=== PATIENT | female | born 1975 | race Two or more races ===

== ENCOUNTER 2021-06-28 19:00 | Inpatient (IN) | payer MEDICAID ==
[~2021-06-28] VITALS: Ht 152.4 cm; Wt 74.9 kg
[~2021-06-28 19:00] MED LIST: ALBU108A5 IN; BENZ0.5T19 PO; BUSP5TAB51 PO; CETI1TAB36 PO; CHOL20007 PO; CICL160A2 IN; CYA100I IM; ESCI20TA PO; HYDR25TA4 PO; LAMO25TA2 PO; MONT4CHW9 PO; NORE-20 PO; NORT10CA PO; PANT40TA2 PO; TRAZ100T3 PO; VERA1TAB24 PO
[2021-06-28] MEDS ORDERED: ALBUTEROL SULF 2.5 MG/0.5ML(0.5%) NEB SOLN NEB ONE (19:45)
[2021-06-28] MEDS ORDERED: DexAMETHasone SOD PHOS 10MG/1ML VIAL INJ IV ONE (19:45)
[2021-06-28] MEDS ORDERED: AZITHROMYCIN 500MG/ 250ML 250 ML IV ONE (19:45)
[2021-06-28] MEDS ORDERED: IPRATROPIUM BROM 0.5 MG/2.5ML INH SOL NEB ONE (19:45)
[2021-06-28 21:20] LABS: Urine Bacteria FEW /hpf (None Seen); Urine Blood TRACE /uL (Negative); Urine Specific Gravity 1.013 (1.001-1.035); Urine WBC 140 /hpf (0 - 5)
[2021-06-28 22:27] LABS: Basophils # (auto) 0 10 ^3/uL (0-0.2); Basophils % (auto) 0.9 % (0.0-2.0); Eosinophils # (auto) 0 10 ^3/uL (0-0.8); Eosinophils % (auto) 0.7 % (0.0-7.0); Hematocrit 35.4 % (36.0-46.0); Hemoglobin 11.9 g/dL (12.2-16.2); Lymphocytes # (auto) 0.8 10 ^3/uL (0.4-5.4); Lymphocytes % (auto) 16.9 % (10.0-50.0); Mean Corpuscular Hemoglobin 30.5 pg (28.0-32.0); Mean Corpuscular Hgb Conc. 33.5 g/dL (32.0-36.0); Monocytes # (auto) 0.4 10 ^3/uL (0-1.3); Monocytes % (auto) 8.5 % (0.0-12.0); Neutrophils # (auto) 3.4 10 ^3/uL (1.6-8.6); Red Blood Cells 3.89 10^6/uL (4.0-5.20); Red Cell Distribution Width 13.9 % (11.8-14.3); White Blood Cell 4.6 10^3/uL (4.4-10.8)
[2021-06-28 22:41] LABS: Magnesium 2.5 mg/dL (1.6-2.6); Potassium 3.4 mmol/L (3.5-5.1)
[2021-06-28 22:48] LABS: BUN/Creatinine Ratio 5.1; Bilirubin, Total 0.6 mg/dL (0.2-1.0); Total Protein 7.3 g/dL (6.4-8.2)
[2021-06-28 23:03] LABS: INR 1.08 (0.9-1.15); Partial Thromboplastin Time 27.6 sec (23.6-33.0)
[2021-06-29] MEDS ORDERED: ACETAMINOPHEN 325 MG TAB PO PRN (00:45)
[2021-06-29] MEDS ORDERED: DOCUSATE SOD 100 MG CAP PO PRN (00:45)
[2021-06-29] MEDS ORDERED: ONDANSETRON HCL 4 MG/2 ML VIAL IV PRN (00:45)
[2021-06-29] MEDS ORDERED: hydrALAZINE HCL 20 MG/ML VL IV PRN (00:45)
[2021-06-29] MEDS ORDERED: MORPHINE SULFATE 4 MG/ML SYR/VIAL IV PRN (00:45)
[2021-06-29] MEDS: IPRATROPIUM BROM 0.5 MG/2.5ML INH SOL NEB PRN ×4 (01:27→20:15)
[2021-06-29] MEDS: ALBUTEROL SULF 2.5 MG/0.5ML(0.5%) NEB SOLN NEB PRN ×4 (01:27→20:15)
[2021-06-29] MEDS ORDERED: POTASSIUM CHL 20 Meq TABLET PO ONE (02:00)
[2021-06-29] MEDS ORDERED: NITROGLYCERIN 0.4 MG SL TAB SL PRN (02:00)
[2021-06-29] MEDS ORDERED: MORPHINE SULFATE INJECTION 2 MG/ML SYRG IV PRN (02:00)
[2021-06-29 04:55] LABS: Basophils # (auto) 0 10 ^3/uL (0-0.2); Basophils % (auto) 0.3 % (0.0-2.0); Eosinophils # (auto) 0 10 ^3/uL (0-0.8); Hematocrit 35.5 % (36.0-46.0); Lymphocytes # (auto) 0.4 10 ^3/uL (0.4-5.4); Lymphocytes % (auto) 10.8 % (10.0-50.0); Mean Corpuscular Hemoglobin 30.9 pg (28.0-32.0); Mean Corpuscular Hgb Conc. 33.9 g/dL (32.0-36.0); Mean Corpuscular Volume 91.3 fL (80.0-100.0); Monocytes # (auto) 0.1 10 ^3/uL (0-1.3); Monocytes % (auto) 2.6 % (0.0-12.0); Neutrophils # (auto) 3.2 10 ^3/uL (1.6-8.6); Neutrophils % (auto) 86.3 % (37.0-80.0); Red Blood Cells 3.89 10^6/uL (4.0-5.20); Red Cell Distribution Width 14.1 % (11.8-14.3); White Blood Cell 3.7 10^3/uL (4.4-10.8)
[2021-06-29 05:33] LABS: Calcium 8.3 mg/dL (8.5-10.1)
[2021-06-29 05:37] LABS: BUN/Creatinine Ratio 5.5; Bilirubin, Total 0.6 mg/dL (0.2-1.0); Total Protein 7.7 g/dL (6.4-8.2)
[2021-06-29] MEDS: SODIUM CHLOR 0.9% PF (SALINE LOCK) 10ML VIAL/SYR IV SCH ×3 (06:48→21:06)
[2021-06-29] MEDS: methylPREDNISolone SOD SUCC 40 MG/ML VL IV SCH ×3 (06:49→21:03)
[2021-06-29] MEDS: cefTRIAXone 1GM/50ML D5W 50 ML IV SCH (09:43)
[2021-06-29] MEDS: ZINC SULFATE 220mg CAP or TAB PO SCH (09:44)
[2021-06-29] MEDS: MULTIPLE VITAMIN TAB PO SCH (09:44)
[2021-06-29] MEDS: ASCORBIC ACID 500 MG TAB PO SCH ×2 (09:48→21:02)
[2021-06-29] MEDS: HYDROcodone-ACET 5/325MG TAB PO PRN ×3 (09:49→21:06)
[2021-06-29] MEDS ORDERED: FAMOTIDINE (10MG/ML) 2ML VL IV SCH (10:00)
[2021-06-29 12:00] VITALS: BP 128/82
[2021-06-29] MEDS ORDERED: OLAN20TA PO (12:02)
[2021-06-29] MEDS ORDERED: ALBU0.084 NEB (12:02)
[2021-06-29] MEDS ORDERED: BUDE1AER4 IN (12:02)
[2021-06-29 17:00] VITALS: BP 110/74
[2021-06-29] MEDS: SUCRALFATE 1 GM/10 ML ORAL SUSP PO SCH ×2 (17:30→21:02)
[2021-06-29] MEDS: PANTOPRAZOLE 40 MG TAB PO SCH (21:02)
[2021-06-29 22:00] VITALS: BP 114/62
[2021-06-30] MEDS: ALBUTEROL SULF 2.5 MG/0.5ML(0.5%) NEB SOLN NEB PRN (01:03)
[2021-06-30] MEDS: IPRATROPIUM BROM 0.5 MG/2.5ML INH SOL NEB PRN (01:03)
[2021-06-30 05:36] LABS: Basophils # (auto) 0 10 ^3/uL (0-0.2); Basophils % (auto) 0.1 % (0.0-2.0); Eosinophils # (auto) 0 10 ^3/uL (0-0.8); Hematocrit 34.1 % (36.0-46.0); Hemoglobin 11.8 g/dL (12.2-16.2); Lymphocytes # (auto) 0.8 10 ^3/uL (0.4-5.4); Lymphocytes % (auto) 10.1 % (10.0-50.0); Mean Corpuscular Hemoglobin 31.3 pg (28.0-32.0); Mean Corpuscular Hgb Conc. 34.5 g/dL (32.0-36.0); Mean Corpuscular Volume 90.7 fL (80.0-100.0); Monocytes # (auto) 0.5 10 ^3/uL (0-1.3); Monocytes % (auto) 6.6 % (0.0-12.0); Neutrophils # (auto) 6.9 10 ^3/uL (1.6-8.6); Neutrophils % (auto) 83.2 % (37.0-80.0); Nucleated Red Blood Cells % 0.1 %; Red Blood Cells 3.76 10^6/uL (4.0-5.20); Red Cell Distribution Width 14.1 % (11.8-14.3); White Blood Cell 8.3 10^3/uL (4.4-10.8)
[2021-06-30 05:54] LABS: Albumin 2.8 g/dL (3.4-5.0); Calcium 8.6 mg/dL (8.5-10.1); Potassium 4.8 mmol/L (3.5-5.1)
[2021-06-30 05:59] LABS: BUN/Creatinine Ratio 13.3; Bilirubin, Total 0.4 mg/dL (0.2-1.0); Total Protein 6.7 g/dL (6.4-8.2)
[2021-06-30] MEDS: ALBUTEROL SULF 2.5 MG/0.5ML(0.5%) NEB SOLN NEB SCH ×5 (06:11→22:44)
[2021-06-30] MEDS: IPRATROPIUM BROM 0.5 MG/2.5ML INH SOL NEB SCH ×5 (06:12→22:44)
[2021-06-30 06:14] VITALS: BP 118/83
[2021-06-30] MEDS: methylPREDNISolone SOD SUCC 40 MG/ML VL IV SCH ×3 (06:17→21:43)
[2021-06-30] MEDS: SODIUM CHLOR 0.9% PF (SALINE LOCK) 10ML VIAL/SYR IV SCH ×3 (06:17→21:43)
[2021-06-30] MEDS: SUCRALFATE 1 GM/10 ML ORAL SUSP PO SCH ×4 (06:17→21:45)
[2021-06-30 08:00] VITALS: BP 118/83
[2021-06-30 08:54] VITALS: BP 120/67
[2021-06-30] MEDS: ZINC SULFATE 220mg CAP or TAB PO SCH (09:09)
[2021-06-30] MEDS: cefTRIAXone 1GM/50ML D5W 50 ML IV SCH ×2 (09:09→11:44)
[2021-06-30] MEDS: MULTIPLE VITAMIN TAB PO SCH (09:09)
[2021-06-30] MEDS: ASCORBIC ACID 500 MG TAB PO SCH ×2 (09:10→21:44)
[2021-06-30] MEDS: PANTOPRAZOLE 40 MG TAB PO SCH ×2 (09:10→21:44)
[2021-06-30] MEDS: HYDROcodone-ACET 5/325MG TAB PO PRN ×3 (09:18→20:15)
[2021-06-30 12:38] LABS: Hepatitis B Surface Antibody Positive (Negative)
[2021-06-30] MEDS ORDERED: BUSP30TA PO (12:40)
[2021-06-30 13:00] VITALS: BP 121/73
[2021-06-30 13:12] LABS: Hepatitis A Total Antibody Positive (Negative)
[2021-06-30 13:41] LABS: Hepatitis C Antibody Negative (Negative)
[2021-06-30] MEDS: busPIRone HCL 10 MG TAB PO SCH ×2 (14:18→21:44)
[2021-06-30 17:00] VITALS: BP 106/58
[2021-06-30] MEDS ORDERED: diazePAM 5 MG TAB PO PRN (18:30)
[2021-06-30 21:00] VITALS: BP 111/82
[2021-06-30] MEDS ORDERED: traZODone HCL 50 MG TAB PO SCH (22:00)
[2021-06-30] MEDS ORDERED: OLANZapine 5 MG TAB PO SCH (22:00)
[2021-07-01] MEDS: ALBUTEROL SULF 2.5 MG/0.5ML(0.5%) NEB SOLN NEB SCH ×4 (01:52→14:21)
[2021-07-01] MEDS: IPRATROPIUM BROM 0.5 MG/2.5ML INH SOL NEB SCH ×4 (01:52→14:21)
[2021-07-01 05:00] VITALS: BP_SYST 118; BP_SYST 123; BP_DIAS 58; BP_DIAS 70
[2021-07-01] MEDS: methylPREDNISolone SOD SUCC 40 MG/ML VL IV SCH ×2 (06:05→13:44)
[2021-07-01] MEDS: SODIUM CHLOR 0.9% PF (SALINE LOCK) 10ML VIAL/SYR IV SCH ×2 (06:05→13:44)
[2021-07-01] MEDS: SUCRALFATE 1 GM/10 ML ORAL SUSP PO SCH ×2 (06:05→11:30)
[2021-07-01 08:00] VITALS: BP 118/69
[2021-07-01] MEDS: busPIRone HCL 10 MG TAB PO SCH (08:44)
[2021-07-01] MEDS: ZINC SULFATE 220mg CAP or TAB PO SCH (08:44)
[2021-07-01] MEDS: MULTIPLE VITAMIN TAB PO SCH (08:45)
[2021-07-01] MEDS: PANTOPRAZOLE 40 MG TAB PO SCH (08:45)
[2021-07-01] MEDS: ASCORBIC ACID 500 MG TAB PO SCH (08:46)
[2021-07-01 08:47] VITALS: BP 118/69
[2021-07-01] MEDS: HYDROcodone-ACET 5/325MG TAB PO PRN (09:10)
[2021-07-01] MEDS ORDERED: HCTZ 25 MG TAB PO SCH (10:00)
[2021-07-01] MEDS ORDERED: VERAPAMIL HCL 120 mg ER tab PO SCH (10:00)
[2021-07-01] MEDS ORDERED: FLUoxetine HCL 20 MG CAP PO SCH (10:00)
[2021-07-01] MEDS ORDERED: ALBUAER3 IN (11:26)
[2021-07-01] MEDS ORDERED: PANT40T PO (11:29)
[2021-07-01] MEDS ORDERED: SUCR1TAB22 OR (11:29)
[2021-07-01] MEDS ORDERED: ALBU0.084 NEB (11:29)
[2021-07-01] MEDS ORDERED: LEVO500T31 PO (11:29)
[2021-07-01 13:06] VITALS: BP 111/61
== END 2021-07-01 14:15 | disposition home or self-care (01) | DRG 133 ==
LOC: EDBD 19:00 → ER 19:02 → OVERFLOW 06-29 01:56 → WEST WING 06-29 11:35
PROVIDERS: ADMIT Nurse Practitioner Family; ATTEND Family Medicine
DX: J96.00 Acute respiratory failure, unspecified whether with hypoxia or hypercapnia (principal); J45.42 Moderate persistent asthma with status asthmaticus; E88.09 Other disorders of plasma-protein metabolism, not elsewhere classified; K76.0 Fatty (change of) liver, not elsewhere classified; F25.0 Schizoaffective disorder, bipolar type; K21.9 Gastro-esophageal reflux disease without esophagitis; E87.6 Hypokalemia; N39.0 Urinary tract infection, site not specified; F06.4 Anxiety disorder due to known physiological condition; I10 Essential (primary) hypertension; F43.22 Adjustment disorder with anxiety; K80.20 Calculus of gallbladder without cholecystitis without obstruction; F32.A Depression, unspecified; G43.909 Migraine, unspecified, not intractable, without status migrainosus; Z80.0 Family history of malignant neoplasm of digestive organs; Z80.3 Family history of malignant neoplasm of breast; Z81.8 Family history of other mental and behavioral disorders; Z82.49 Family history of ischemic heart disease and other diseases of the circulatory system; Z83.3 Family history of diabetes mellitus; Z90.49 Acquired absence of other specified parts of digestive tract; Z56.0 Unemployment, unspecified; Z91.51 Personal history of suicidal behavior; Z88.7 Allergy status to serum and vaccine
CPT/HCPCS: 36415; 71045; 76705; 80053; 81001; 82728; 83036; 83735; 83880; 84484; 84702; 85025; 85610; 85730; 86038; 86704; 86706; 86708; 86803; 87040; 87081; 87086; 87088; 87186; 87340; 87426; 94640; 96365; 96375; G0378; J0696; J1100; J3490

== ENCOUNTER → 2021-12-04 | Emergency (ER) | payer MEDICAID ==
[~2021-12-04] VITALS: Ht 152.4 cm; Wt 77.1 kg
[~2021-12-04] MED LIST changes: +ACETAMINOPHEN 325 MG TAB PO ONE; +ACETAMINOPHEN 500 MG TAB PO ONE; +ALBU0.084 NEB; +ALBUAER3 IN; -BENZ0.5T19 PO; +BUDE1AER4 IN; +BUSP30TA PO; -BUSP5TAB51 PO; -CETI1TAB36 PO; -CHOL20007 PO; -CICL160A2 IN; -CYA100I IM; +IOHEXOL 300 MG/ML 100ML BOTTLE IJ ONE; -LAMO25TA2 PO; +LEVO500T31 PO; -MONT4CHW9 PO; -NORE-20 PO; -NORT10CA PO; +OLAN20TA PO; +PANT40T PO; +POTASSIUM CHL 20 Meq TABLET PO ONE; +SODIUM CHLORIDE 0.9% 1,000 ML IV ONE; +SUCR1TAB22 OR; +cefTRIAXone 1GM/50ML D5W 50 ML IV ONE
[2021-12-04 21:21] LABS: Basophils # (auto) 0.2 10 ^3/uL (0-0.2); Basophils % (auto) 1.6 % (0.0-2.0); Eosinophils # (auto) 0 10 ^3/uL (0-0.8); Eosinophils % (auto) 0.2 % (0.0-7.0); Hematocrit 34.6 % (36.0-46.0); Hemoglobin 11.9 g/dL (12.2-16.2); Lymphocytes % (auto) 9.1 % (10.0-50.0); Mean Corpuscular Hemoglobin 28.8 pg (28.0-32.0); Mean Corpuscular Hgb Conc. 34.3 g/dL (32.0-36.0); Mean Corpuscular Volume 84.2 fL (80.0-100.0); Monocytes # (auto) 0.5 10 ^3/uL (0-1.3); Monocytes % (auto) 4.6 % (0.0-12.0); Neutrophils # (auto) 9.4 10 ^3/uL (1.6-8.6); Neutrophils % (auto) 84.5 % (37.0-80.0); Nucleated Red Blood Cells % 0.1 %; Red Blood Cells 4.12 10^6/uL (4.0-5.20); Red Cell Distribution Width 16.8 % (11.8-14.3); White Blood Cell 11.1 10^3/uL (4.4-10.8)
[2021-12-04 21:35] LABS: Urine Bacteria NONE SEEN /hpf (None Seen); Urine Blood Negative /uL (Negative); Urine Specific Gravity 1.015 (1.001-1.035); Urine WBC <1 /hpf (0 - 5)
[2021-12-04 21:45] LABS: Calcium 8.3 mg/dL (8.5-10.1)
[2021-12-04 21:53] LABS: Bilirubin, Total 0.5 mg/dL (0.2-1.0); CRP High Sensitivity 2.92 mg/dL (< 0.3); Total Protein 7.6 g/dL (6.4-8.2)
[2021-12-04 22:00] LABS: Potassium 2.7 mmol/L (3.5-5.1)
[2021-12-05 12:15] VITALS: BP 135/89
== END | disposition short-term general hospital (02) ==
LOC: EDUNIT# 20:27 → EDBD 20:30 → ER 20:33
DX: U07.1 COVID-19 (principal); R10.9 Unspecified abdominal pain; E87.6 Hypokalemia
CPT/HCPCS: 36415; 74177; 80053; 81001; 83605; 85025; 86141; 87040; 87086; 87426; 93005; 96365; 99285; J0696; J7030; Q9967; 71045

== ENCOUNTER 2024-08-31 18:26 | Emergency (ER) | payer MEDICAID ==
[~2024-08-31] VITALS: Ht 152.4 cm; Wt 79.0 kg
[~2024-08-31 18:26] MED LIST changes: +ACET-1882 PO; -ACETAMINOPHEN 325 MG TAB PO ONE; -ACETAMINOPHEN 500 MG TAB PO ONE; -ALBU0.084 NEB; -ALBU108A5 IN; +ALBU2TAB11 PO; -ALBUAER3 IN; +AZIT-74 PO; +BUDE1AER16 IN; -BUDE1AER4 IN; +BUSP15TA60 PO; -BUSP30TA PO; +CEVI30CA8 PO; +DILT120C44 PO; +IBUP-1456 PO; -IOHEXOL 300 MG/ML 100ML BOTTLE IJ ONE; +IPRIH INH; +LAMO200T34 PO; -LEVO500T31 PO; +LINA1CAP2 PO; +METH4PAK PO; +MONT-8 PO; +NARA2.5T2 PO; +NORETAB PO; +OLAN1TAB19 PO; -OLAN20TA PO; -PANT40T PO; +PHEN-1148 PO; +POTA-36 PO; -POTASSIUM CHL 20 Meq TABLET PO ONE; -SODIUM CHLORIDE 0.9% 1,000 ML IV ONE; +SUCR1TAB PO; -SUCR1TAB22 OR; +TRAZ-228 PO; -TRAZ100T3 PO; -VERA1TAB24 PO; -cefTRIAXone 1GM/50ML D5W 50 ML IV ONE
--- NOTE | 2024-08-31 18:42 | ECG ---
[facility] Test Date: 2024-08-31 Test Time: 18:34:39 Pat Name: ERIC LONDON Department: ER Room: Gender: F Senior Etl Developer: RACHEL : 1975 Requested By: LASIHA VALE Order Number: [id number] Reading MD: Ab Holcomb Measurements Intervals [place] Rate: 94 P: 0 AL: 0 QRS: -2 QRSD: 126 T: 13 QT: 405 QTc: 507 Interpretive Statements Atrial flutter with varied AV block, Nonspecific intraventricular conduction delay Borderline T abnormalities, anterior leads Electronically Signed On 09-02-2024 19:12:45 PDT by Ab Holcomb Please click the below link to view image of tracing.
--- NOTE | 2024-08-31 18:48 | ED.PDOC ---
SOB-HPI HPI Comments 49-year-old female came to ER via EMS for shortness of breath. Patient has history of asthma, for the past 5 days, patient has been having productive cough with shortness of breath and wheezing. With generalized weakness, fever and chills. Breathing treatments offered slight relief. Upon arrival of paramedics, patient saturating at 98% on room air. Chief Complaint: Shortness of Breath Time Seen by MD: 18:46 Reviewed notes: Closing Manager Notes Information Source: Patient, Emergency Med Personnel Mode of Arrival: EMS Severity: Moderate Timing: Days Duration: Since onset Context: At Rest, With Light Exertion History of: Asthma Prehospital treatment: Breathing Tx, Oxygen Modifying Factors: Nothing Associated Signs and Symptoms: Fever, Wheeze, Cough Quality: Aching, Tightness Radiation: No Radiation If cough with SOB: Productive Review of Systems REVIEW OF SYSTEMS: (+) fever, chills, and fatigue HEENT: No sore throat, no earache, no congestion, no neck pain. Lungs: (+) shortness of breath, (+) cough. GI: No nausea, no vomiting, no diarrhea, no constipation, no abdominal pain : No dysuria, frequency, or urgency. No hematuria. Musculoskeletal: No joint pain , no joint swelling, no extremity edema. Skin: No rash, no itching. Neuro: No headache, no dizziness, no weakness Vital Signs Vital Signs Date Time Temp Pulse Resp B/P (MAP) Pulse Ox O2 Delivery O2 Flow Rate FiO2 08/31/24 22:25 98.5 08/31/24 19:50 87 16 107/53 (71) 98 08/31/24 19:19 Room Air* 0 21 Physical Exam General: Awake, alert and oriented. No acute distress. Skin: Skin in warm, dry and intact. Appropriate color for ethnicity. Nailbeds pink with no cyanosis. HEENT: The head is normocephalic and atraumatic. Conjunctivae are clear without exudates or hemorrhage. Sclera is non-icteric. EOM are intact. No signs of nystagmus. Eyelids are normal in appearance without swelling or lesions. Oral mucosa is pink and moist Neck: The neck is supple with normal range of motion. No JVD. Cardiac: Heart rate and rhythm are normal. No murmurs, gallops, or rubs are auscultated. Respiratory: Tachypnea, bilateral rhonchi Abdominal: Abdomen is soft, non-tender without distention. Bowel sounds are present and normoactive in all four quadrants. Extremities: Upper and lower extremities are atraumatic in appearance without deformity or edema. Neurological: The patient is awake, alert and oriented to person, place, and time with normal speech. Speech is clear. There is no facial asymmetry. Psychiatric: Appropriate mood and affect. Good judgement and insight. No visual or auditory hallucinations. Past Medical History PAST MEDICAL HISTORY: Asthma, GERD, HTN Past Medical History (Other): Acute respiratory failure Surgical History: Appendectomy, Hernia Repair PIN STICKER History: No Pertinent PIN STICKER History Family History Family History: Family hx of DM, Family hx of Cancer, Family hx of heart jason Social History Smoker: Non-Smoker, Secondhand Alcohol: Rarely Drugs: Denies Drug Use Lives In: Home EKG EKG : Pulse Rate (adult): 94 Cardiac Rhythm: NSR Was a procedure done? Was a procedure done?: No Differential Dx Differential Diagnosis: Asthma, Bronchitis, CHF, COPD, Hyperventilation, Myocardial infarction, Pneumonia, Respiratory Distress, URI, Other X-Ray, Labs, Meds, VS Vital Signs Date Time Temp Pulse Resp B/P (MAP) Pulse Ox O2 Delivery O2 Flow Rate FiO2 08/31/24 22:25 98.5 08/31/24 19:50 98.1 87 16 107/53 (71) 98 98.1 08/31/24 19:19 27 100 Room Air* 0 21 08/31/24 18:48 94 08/31/24 18:34 94 08/31/24 18:31 98.2 86 20 108/85 (93) 100 Lab Test 08/31/24 21:05 08/31/24 20:55 08/31/24 20:54 08/31/24 20:01 Range/Units Lactic Acid Level 3.9 *H 0.4-2.0 mmol/L Urine Color Light-yellow Yellow Urine Clarity Clear Clear Urine pH 7.0 5.0-9.0 Urine Specific [place] 1.009 1.001-1.035 Urine Protein Negative Negative Urine Ketones Negative Negative Urine Blood Negative Negative /uL Urine Nitrite Negative Negative Urine Bilirubin Negative Negative Urine Urobilinogen Normal Negative mg/dL Urine Leukocyte Esterase Trace Negative /uL Urine RBC <1 0 - 4 /hpf Urine Microscopic WBC 2 0-5 /HPF Urine Squamous Epithelial Cells Few <5 /hpf Urine Bacteria None seen None Seen /hpf Urine Glucose Normal Normal mg/dL Influenza Type A Antigen Negative Negative Influenza Type B Antigen Negative Negative SARS-CoV-2 Antigen (Rapid) Negative NEGATIVE Troponin I High Sensitivity < 3 L </=34 ng/L Test 08/31/24 19:08 08/31/24 19:03 Range/Units Blood Gas Specimen Type Arterial Blood Gas Sample Site Left radial Blood Gas Patient Temperature 37.0 Arterial Blood Date Drawn [id number] Arterial Blood pH 7.670 *H 7.350-7.450 Arterial Blood Partial Pressure CO2 19.2 *L 32.0-45.0 mmHg Arterial Blood Partial Pressure O2 95.9 83.0-108.0 mmHg Arterial Blood HCO3 21.6 21.0-28.0 mmol/L Arterial Blood Oxygen Saturation 97.5 94.0-98.0 % Arterial Blood Base Excess 2.8 -2.0-3.0 mmol/L Arterial Blood Oxyhemoglobin 96.5 94.0-98.0 % Arterial Blood Carboxyhemoglobin 0.7 0.5-1.5 % Arterial Blood Methemoglobin 0.3 0.0-1.5 % Eliu Test N/a Blood Gas Total Hemoglobin 11.40 L 12.0-16.0 g/dL Blood Gas Modality Room air FiO2 % 21.0 Blood Gas Critical Value Read Back Yes Blood Gas Notified Whom kathryn Garcia md Blood Gas Notified Time [id number] Blood Gas Notified By White Blood Count 8.0 4.4-10.8 10^3/uL Red Blood Count 4.45 4.0-5.20 10^6/uL Hemoglobin 11.2 L 12.2-16.2 g/dL Hematocrit 34.6 L 36.0-46.0 % Mean Corpuscular Volume 77.9 L 80.0-100.0 fL Mean Corpuscular Hemoglobin 25.3 L 28.0-32.0 pg Mean Corpuscular Hemoglobin Concent 32.4 32.0-36.0 g/dL Red Cell Distribution Width 15.8 H 11.8-14.3 % Platelet Count 269 140-450 10^3/uL Mean Platelet Volume 7.5 6.9-10.8 fL Neutrophils (%) (Auto) 77.0 37.0-80.0 % Lymphocytes (%) (Auto) 15.5 10.0-50.0 % Monocytes (%) (Auto) 7.2 0.0-12.0 % Eosinophils (%) (Auto) 0.0 0.0-7.0 % Basophils (%) (Auto) 0.3 0.0-2.0 % Neutrophils # (Auto) 6.1 1.6-8.6 10 ^3/uL Lymphocytes # (Auto) 1.2 0.4-5.4 10 ^3/uL Monocytes # (Auto) 0.6 0-1.3 10 ^3/uL Eosinophils # (Auto) 0 0-0.8 10 ^3/uL Basophils # (Auto) 0 0-0.2 10 ^3/uL Nucleated Red Blood Cells 0.0 % D-Dimer, Quantitative 1.11 H 0.0-0.49 mg/L FEU Sodium Level 135 L 136-145 mmol/L Potassium Level 2.5 *L 3.5-5.1 mmol/L Chloride Level 99 98-107 mmol/L Carbon Dioxide Level 22 20-31 mmol/L Anion Gap 14 5-15 Blood Urea Nitrogen 12 9-23 mg/dL Creatinine 1.00 0.550-1.02 mg/dL Glomerular Filtration Rate Calc 68 >90 mL/min BUN/Creatinine Ratio 12.0 10.0-20.0 Serum Glucose 113 H 74-106 mg/dL Lactic Acid Level 4.6 *H 0.4-2.0 mmol/L Calcium Level 9.7 8.7-10.4 mg/dL Total Bilirubin 0.2 0.2-1.0 mg/dL Aspartate Amino Transferase (AST) 19 13-40 U/L Alanine Aminotransferase (ALT) 13 7-40 U/L Alkaline Phosphatase 85 46-116 U/L Troponin I High Sensitivity < 3 L </=34 ng/L B-Type Natriuretic Peptide 3.43 0-100 pg/mL Total Protein 6.4 5.7-8.2 g/dL Albumin 4.5 3.2-4.8 g/dL Current Medications Medications (Trade) Dose Ordered Sig/Kristina Route Start Time Stop Time Status Last Admin Albuterol (Ventolin Medneb) 5 mg ONCE ONCE NEB 08/31/24 18:45 08/31/24 18:46 DC 08/31/24 19:21 Methylprednisolone Sodium Succinate (Solu Medrol) 80 mg ONCE ONCE IV 08/31/24 18:45 08/31/24 18:46 DC 08/31/24 19:35 Potassium Bicarbonate (Klor-Con/Ef) 50 meq ONCE ONCE PO 08/31/24 20:15 08/31/24 20:16 DC 08/31/24 20:58 Sodium Chloride 1,000 ml @ 1,000 mls/hr Q1H ONCE IV 08/31/24 20:15 08/31/24 21:14 DC 08/31/24 20:45 Ceftriaxone Sodium 50 ml @ 100 mls/hr ONCE ONCE IV 08/31/24 20:15 08/31/24 20:44 DC 08/31/24 20:45 Sodium Chloride 1,000 ml @ 1,000 mls/hr Q1H ONCE IV 08/31/24 20:15 08/31/24 21:14 DC 08/31/24 20:45 Sodium Chloride 1,000 ml @ 130 mls/hr Q7H42M ONCE IV 08/31/24 20:15 09/01/24 03:56 08/31/24 20:15 Acetaminophen (Tylenol Tablet) 650 mg ONCE ONCE PO 08/31/24 22:00 08/31/24 22:01 DC 08/31/24 22:25 CHEST RADIOGRAPH Indication: Shortness of breath Technique: Single frontal view of the chest was obtained COMPARISON: XY CHEST PORTABLE on DOS: 07/09/24, CHEST XRAY 1 VIEW on DOS: 12/05/21, CXR1 on DOS: 12/05/21, CHEST PORTABLE on DOS: 06/28/21 FINDINGS: Lines and Tubes: None Lungs: Mild opacity noted at the left lung base which may represent pneumonia. Right lung is clear. Pleura: No effusion.No pneumothorax. Cardiomediastinal contours: Unremarkable Bones: Unremarkable IMPRESSION: Mild opacity noted at left lung base which may represent pneumonia. Time of 1ST Reevaluation: 18:43 Reevaluation 1ST: Unchanged Patient Education/Counseling: Diagnosis, Treatment Family Education/Counseling: No Family Present Departure 1 Departure Time of Disposition: 20:06 Impression: Primary Impression: Acute asthma exacerbation Additional Impressions: Hypokalemia Lactic acidemia Disposition: ADMITTED INPATIENT Condition: Stable Comments 49-year-old female with asthma exacerbation, hypokalemia, lactic acidemia. Antibiotics, IV fluids initiated in the emergency department. Discussed with [facility] physician Dr. Ewing @[id number] , recommendation is for transfer. Transferred to [facility] for further evaluation, treatment and monitoring. Extensive evaluation was performed in attempt to identify or rule out: (See differential diagnosis section) The following tests were ordered, and results were reviewed by me and discussed with the patient: (See diagnostic results section) The following test were independently interpreted by me: EKG, chest x-ray I reviewed the following notes from the pt's past medical encounters: (None available at this time) Additional information was gathered from interviewing the following independent historians: EMS personnel Discussion of management or test interpretation with external physician/other qualified health child care supervisor: N/A Addressed an acute or chronic illness that poses a threat to life or bodily function: Acute asthma exacerbation, suspected sepsis, lactic acidemia, hypokalemia, respiratory alkalosis Decision regarding hospitalization or escalation of hospital level of care: Risk and benefits of admission for further treatment of patient's condition was considered. Due to patient's current clinical condition, high risk of decline and poor outcome if discharged and need for further inpatient management and monitoring, patient will be admitted to the hospital. Drug therapy requiring intensive monitoring for toxicity: N/A Parenteral controlled substances: N/A Decision regarding elective major surgery with identified patient or procedure risk factors: N/A Decision regarding emergency major surgery: N/A Decision not to resuscitate or to de-escalate care because of poor prognosis: N/A Diagnosis or treatment significantly limited by social determinants of health: N/A Critical Care Note Critical Care Time?: No Stability Stability form required: No Heart Score Heart Score: Heart Score Response (Comments) Value History Slightly Suspicious 0 EKG Normal 0 Age 45-64 1 Risk Factors 1 or 2 risk factors 1 Troponin Normal limit 0 Total 2 I personally scribed for LAISHA VALE MD ([email or web address]) on 08/31/24 at 18:48. Electronically submitted by Daljit Awan ([facility] I personally scribed for LAISHA VALE MD ([email or web address]) on 08/31/24 at 21:59. Electronically submitted by Daljit Awan ([facility]). LAISHA VALE MD Aug 31, 2024 18:48
[2024-08-31 19:17] LABS: Basophils # (auto) 0 10 ^3/uL (0-0.2); Eosinophils # (auto) 0 10 ^3/uL (0-0.8); Hemoglobin 11.2 g/dL (12.2-16.2)
[2024-08-31 19:19] LABS: Basophils % (auto) 0.3 % (0.0-2.0); Hematocrit 34.6 % (36.0-46.0); Lymphocytes # (auto) 1.2 10 ^3/uL (0.4-5.4); Lymphocytes % (auto) 15.5 % (10.0-50.0); Mean Corpuscular Hemoglobin 25.3 pg (28.0-32.0); Mean Corpuscular Hgb Conc. 32.4 g/dL (32.0-36.0); Mean Corpuscular Volume 77.9 fL (80.0-100.0); Monocytes # (auto) 0.6 10 ^3/uL (0-1.3); Monocytes % (auto) 7.2 % (0.0-12.0); Neutrophils # (auto) 6.1 10 ^3/uL (1.6-8.6); Platelet Count (auto) 269 10^3/uL (140-450); Red Blood Cells 4.45 10^6/uL (4.0-5.20); Red Cell Distribution Width 15.8 % (11.8-14.3)
[2024-08-31 19:20] LABS: Base Excess 2.8 mmol/L (-2.0-3.0)
[2024-08-31] MEDS: ALBUTEROL SULF 2.5 MG/0.5ML(0.5%) NEB SOLN NEB ONE (19:21)
[2024-08-31] MEDS: methylPREDNISolone SOD SUCC 125 MG/2 ML VL IV ONE (19:35)
[2024-08-31 19:40] VITALS: PULSE 87; RESP 18; O2SAT 98
[2024-08-31 19:46] LABS: Alanine Aminotransferase 13 U/L (7-40); Albumin 4.5 g/dL (3.2-4.8); Alkaline Phosphatase 85 U/L (46-116); Anion Gap 14 (5-15); Aspartate Aminotransferase 19 U/L (13-40); Blood Urea Nitrogen 12 mg/dL (9-23); Calcium 9.7 mg/dL (8.7-10.4); Carbon Dioxide 22 mmol/L (20-31); Chloride 99 mmol/L (98-107); Total Protein 6.4 g/dL (5.7-8.2)
--- NOTE | 2024-08-31 19:46 | DVH ---
CHEST RADIOGRAPH Indication: Shortness of breath Technique: Single frontal view of the chest was obtained COMPARISON: XY CHEST PORTABLE on DOS: 07/09/24, CHEST XRAY 1 VIEW on DOS: 12/05/21, CXR1 on DOS: 2, CHEST PORTABLE on DOS: 06/28/21 FINDINGS: Lines and Tubes: None Lungs: Mild opacity noted at the left lung base which may represent pneumonia. Right lung is clear. Pleura: No effusion.No pneumothorax. Cardiomediastinal contours: Unremarkable Bones: Unremarkable IMPRESSION: Mild opacity noted at left lung base which may represent pneumonia.
[2024-08-31 19:49] LABS: Bilirubin, Total 0.2 mg/dL (0.2-1.0); Glucose 113 mg/dL (74-106); Sodium 135 mmol/L (136-145)
[2024-08-31 19:53] LABS: Lactic Acid w/Reflex 4.6 mmol/L (0.4-2.0); Potassium 2.5 mmol/L (3.5-5.1)
[2024-08-31] MEDS: SODIUM CHLORIDE 0.9% 1,000 ML IV ONE ×3 (20:15→20:45)
[2024-08-31] MEDS: cefTRIAXone 1GM/50ML D5W 50 ML IV ONE (20:45)
[2024-08-31] MEDS: IOHEXOL 350 MG/ML 100ML IJ ONE (20:53)
[2024-08-31] MEDS: POTASSIUM EFFERVESENT TAB 25 MEQ PO ONE (20:58)
[2024-08-31 21:19] LABS: Urine Bacteria None Seen /hpf (None Seen)
[2024-08-31 21:45] LABS: Urine Blood Negative /uL (Negative); Urine Clarity Clear (Clear); Urine Color Light-Yellow (Yellow); Urine Protein, UAD Negative (Negative); Urine Specific Gravity 1.009 (1.001-1.035); Urine Squamous Epithelial Cell FEW /hpf (<5); Urine Urobilinogen Normal (Negative); Urine WBC 2 /HPF (0-5)
[2024-08-31] MEDS: ACETAMINOPHEN 325 MG TAB PO ONE (22:25)
[2024-08-31 22:32] LABS: COVID19 ANTIGEN SOFIA FIA NEGATIVE (NEGATIVE)
[2024-08-31 22:33] LABS: Rapid Influenza A Negative (Negative); Rapid Influenza B Negative (Negative)
--- NOTE | 2024-08-31 22:48 | DVH ---
INDICATION: elevated d-dimer r/o PE COMPARISON: CT ANGIO CHEST CONTRAST on DOS: 07/09/24, CT ANGIO CHEST CONTRAST on DOS: 04/04/21 TECHNIQUE: Multidetector CTA of the chest was performed of the chest with 100 cc of intravenous contr ast. PULMONARY ANGIOGRAPHY PROTOCOL was utilized using a bolus-tracking technique centered on the venus n pulmonary artery. Axial, coronal and sagittal multiplanar and MIP reformats were performed. Radiation Dose : 1. Chest: CTDI volume is 27.19 mGy. Dose-length product is 1866.29 mGy*cm The dose indicators for CT are the volume Computed Tomography (CT) Dose Index (CTDIvol) and the Dose Length Product (DLP), and are measured in units of mGy and mGy-cm, respectively. These indicators are not patient dose, but values generated from the CT scanner acquisition factors. The report includes radiation exposure data for exposures received during this examination. Contrast consists of 100 mL o f Isovue 350 with none wasted Findings: Heart is normal in size is a large hiatal hernia no infiltrates or effusions are seen. Thyroid is unr emarkable. Study is not optimal for pulmonary arteries. There is hilar adenopathy I do not appreciate any pulmonary emboli. Patient has large stones in the gallbladder stones measure approximately 2 cm in size there are 2 stones identified. Pancreas is atrophied. Visualized kidneys are unremarkable the re is a large stool burden.. IMPRESSION: 1. No pulmonary embolus. Large hiatal hernia. Large stool burden. 2 cm gallstones.
[2024-09-01] MEDS: AZITHROMYCIN 500MG/ 250ML 250 ML IV ONE (00:01)
[2024-09-01 00:42] VITALS: BP 116/60; PULSE 86; RESP 18; TEMP 97.9; O2SAT 98
== END 2024-09-01 01:26 | disposition home or self-care (01) ==
LOC: ER 18:26 → EDBD 18:26 → ER 23:24
DX: J45.901 Unspecified asthma with (acute) exacerbation (principal); E87.6 Hypokalemia; E87.20 Acidosis, unspecified; I10 Essential (primary) hypertension; K21.9 Gastro-esophageal reflux disease without esophagitis; Z20.822 Contact with and (suspected) exposure to COVID-19; Z90.49 Acquired absence of other specified parts of digestive tract; Z98.890 Other specified postprocedural states
CPT/HCPCS: 36415; 36600; 71045; 71275; 80053; 81001; 82805; 83605; 83880; 84484; 85025; 85379; 87040; 87426; 87804; 93005; 94640; 96365; 96367; 96375; 99285; J0456; J0696; J2919; J7030; Q9967

== ENCOUNTER 2025-04-28 17:11 | Emergency (ER) | payer MEDICAID ==
[~2025-04-28] VITALS: Ht 152.4 cm; Wt 113.5 kg
--- NOTE | 2025-04-28 18:30 | DVH ---
XY CHEST TWO VIEWS ROUTINE CLINICAL HISTORY: cough COMPARISON: 08/31/2024 TECHNIQUE: Frontal and lateral view of the chest was obtained FINDINGS: Lines and Tubes: None Lungs: No focal consolidation. Pleura: No effusion. No pneumothorax. Cardiomediastinal contours: Unremarkable Bones: No acute osseous abnormality. IMPRESSION: 1. No acute cardiopulmonary disease.
[2025-04-28] MEDS: ALBUTEROL SULF 2.5 MG/0.5ML(0.5%) NEB SOLN ONE (20:16)
[2025-04-28] MEDS: IPRATROPIUM BROM 0.5 MG/2.5ML INH SOL ONE (20:17)
[2025-04-28] MEDS: IPRATROPIUM BROM 0.5 MG/2.5ML INH SOL NEB ONE (20:17)
[2025-04-28] MEDS: ALBUTEROL SULF 2.5 MG/0.5ML(0.5%) NEB SOLN NEB ONE (20:18)
--- NOTE | 2025-04-28 20:40 | ED.PDOC ---
History of Present Illness HPI Comments 49-year-old female presents with friend for chief complaint of shortness a breath and nonproductive cough. Patient reports on being evaluated for symptoms, yesterday, at [facility] and being diagnosed in prescribed antibiotics for pneumonia. She states on coming to the ED, due to still persisting symptoms amidst only taking 1x day's dose of antibiotics. She denies any further acute symptoms at this time. Chief Complaint: Shortness of Breath Time Seen by MD: 19:50 Reviewed Notes: Nurses Notes, Hide Stretcher Hand Notes, Medications, Allergies Allergies: Coded Allergies: Pneumococcal Vaccine (Verified Allergy, Unknown, 04/04/21) Home Meds Active Scripts Azithromycin (Zithromax) 250 Mg Tab, 250 MG PO DAILY for 5 Days, #5 TAB Prov:DEE MOREIRA RESIDENT 07/11/24 Ipratropium [place] Hfa (Atrovent Hfa) 17 Mcg Aer, 2 PUFF INH QID, #12.9 GRAMS 3 Refills Prov:DEE MOREIRA 07/11/24 Methylprednisolone (Medrol Dosepak) 4 Mg Yoel, 4 MG PO UD, #21 TAB UAD Prov:DEE MOREIRA RESIDENT 07/11/24 Acetaminophen (Acetaminophen) 325 Mg Tab, 650 MG PO Q6HP PRN for 30 Days, #240 TAB Prov:DEE MOREIRA RESIDENT 07/11/24 Reported Medications Cevimeline Hydrochloride Hemih (CEVIMELINE HCL) 30 Mg Cap, 1 CAP PO BID for 90 Days, #180 07/10/24 Phentermine HCl (Phentermine Hydrochloride) 37.5 Mg Cap, 1 CAP PO DAILY for 30 Days, #30 07/10/24 Linaclotide Base (Linzess) 72 Mcg Cap, 1 CAP PO DAILY for 30 Days, #30 07/10/24 Norethindrone Acet & Eth Estra (Junel 07/10) Tab, 1 TAB PO DAILY, #28 TAB 11 Refills 07/10/24 Ibuprofen (Ibuprofen) 800 Mg Tab, 800 MG PO TID, MG 07/10/24 Albuterol Sulfate (Albuterol Sulfate) 2 Mg Tab, 2.5 MG PO Q6HP PRN for SHORTNESS OF BREATH, MG 07/10/24 Budesonide-Formoterol Fumarate (Breyna 160-4.5 Mcg/Act) 1 Aer Aer, 1 AER IN, AER 07/10/24 Naratriptan Hydrochloride (Naratriptan Hcl) 2.5 Mg Tab, 2.5 MG PO, TAB 07/10/24 Trazodone Hcl (Trazodone Hcl) 100 Mg Tab, 200 MG PO HS, MG 07/10/24 Lamotrigine (Lamotrigine) 200 Mg Tab, 1 TAB PO DAILY, #30 TAB 2 Refills 07/10/24 Sucralfate (Sucralfate) 1 Gm Tab, 1 GM PO Q6HR, GM 07/10/24 Montelukast Sodium (MONTELUKAST SODIUM) 10 Mg Tab, 1 TAB PO HS, #30 TAB 5 Refills 07/10/24 Diltiazem HCl (Cartia Xt) 120 Mg Cap, 120 MG PO DAILY, CAP 07/10/24 Potassium Chloride (POTASSIUM CHLORIDE CR) 10 Meq Tb, 1 TAB PO BID, #30 TAB 5 Refills 07/10/24 Escitalopram Oxalate (Lexapro) 20 Mg Tab, 1 TAB PO DAILY, #90 TAB 3 Refills 07/10/24 Olanzapine (OLANZAPINE) 10 Mg Tab, 20 MG PO HS for 30 Days, MG 07/10/24 Buspirone Hcl (Buspirone Hcl) 15 Mg Tab, 30 MG PO Q12HR for 30 Days 07/10/24 Pantoprazole Sodium Sesquihydr (Protonix) 40 Mg Tab, 40 MG PO BID, #30 TAB 07/10/24 Hydrochlorothiazide (Hydrochlorothiazide) 25 Mg Tab, 1 TAB PO DAILY for 100 Days, #100 04/05/21 Information Source: Patient, Emergency Med Personnel Mode of Arrival: EMS Severity: Moderate Timing: Days Duration: Since onset Prehospital treatment: 12 Lead EKG, Cotton Baler Past Medical History PAST MEDICAL HISTORY: Asthma, GERD, HTN Past Medical History (Other): Pneumonia Surgical History: Appendectomy, Hernia Repair WOOD HEEL CEMENTER History: No Pertinent WOOD HEEL CEMENTER History Family History Family History: Family hx of DM, Family hx of Cancer, Family hx of heart jason Social History Smoker: Non-Smoker, Secondhand Alcohol: Rarely Drugs: Denies Drug Use Lives In: Home All Other Systems: Reviewed and Negative (Comprehensive review of systems are negative unless otherwise stated in HPI) Physical Exam General Appearance: No Apparent Distress, Normal HEENT: Normal ENT Inspection, Pharynx Normal, TMs Normal Neck: Full Range of Motion, Non-Tender, Normal, Normal Inspection Respiratory: Chest Non-Tender, Lungs Clear, No Accessory Muscle Use, No Respiratory Distress, Normal Breath Sounds, Other (Nonproductive cough) Cardiovascular: No Edema, No JVD, No Murmur, No Gallop, Normal Peripheral Puls es, Regular Rate/Rhythm Breast Exam: Deferred Gastrointestinal: No Organomegaly, Non Tender, No Pulsatile Mass, Normal Bowel Sounds, Soft Genitalia: Deferred Pelvic: Deferred Rectal: Deferred Extremities: No calf tenderness, Normal capillary refill, Normal inspection, Normal range of motion, Non-tender, No pedal edema Musculoskeletal : Apperance: Normal Neurologic: Alert, strategies analyst II-XII nml as Tested, No Motor Deficits, Normal Affect, Normal Mood, No Sensory Deficits Cerebellar Function: Normal Reflexes: Normal Skin: Dry, Normal Color, Warm Lymphatic: No Adenopathy Was a procedure done? Was a procedure done?: No Differential Dx Considerations may include: Pneumonia X-Ray, Labs, Meds, VS Vital Signs Date Time Temp Pulse Resp B/P (MAP) Pulse Ox O2 Delivery O2 Flow Rate FiO2 04/28/25 20:20 20 100 Room Air* 0 21 04/28/25 17:57 97.8 92 20 116/73 100 97.8 Time of 1ST Reevaluation: 20:20 Reevaluation 1ST: Unchanged Patient Education/Counseling: Diagnosis, Treatment, Need For Follow Up Family Education/Counseling: No Family Present SEPSIS Sepsis Screen Date sepsis recognized/suspect: Apr 28, 2025 Time Sepsis recognized/suspect: 1709 Recent Procedure: No On Antibiotic Therapy: No Respiratory Rate >20: No Heart Rate >90: Yes Temp<36 C (96.8 F) or >38.3 C: No SBP <90 or MAP <65 mmHG: No New Acute Mental Status Change: No Is the patient on CPAP, BIPAP,: No Physician Orders Chest Two Views Routine (04/28/25 17:48) Vital Signs Date Time Temp Pulse Resp B/P (MAP) Pulse Ox O2 Delivery O2 Flow Rate FiO2 04/28/25 20:20 20 100 Room Air* 0 21 04/28/25 17:57 97.8 92 20 116/73 100 97.8 Medications Medications Dose Ordered Sig/Kristina Route Start Time Stop Time Status Last Admin Dose Admin Albuterol 5 mg STK-MED ONCE .ROUTE 04/28/25 20:13 04/28/25 20:12 DC 04/28/25 20:16 Ipratropium [place] 0.5 mg STK-MED ONCE .ROUTE 04/28/25 20:13 04/28/25 20:12 DC 04/28/25 20:17 Departure 1 Departure Impression: Primary Impression: Cough Disposition: HOME / SELF CARE / HOMELESS Condition: Stable Additional Instructions: You should continue to take your antibiotics as directed. For pain you can take the followinam: Ibuprofen 400mg with food Noon: Acetaminophen 1000mg 4pm: Ibuprofen 400mg with food 8pm: Acetaminophen 1000mg You should follow up with your regular doctor within one week to ensure you are doing better. If your symptoms worsen or you have any other concerns then please return to the ER. Discharged With: Friend Critical Care Note Critical Care Time?: No Stability Stability form required: No Heart Score Heart Score: Heart Score Response (Comments) Value History N/A 0 EKG N/A 0 Age N/A 0 Risk Factors N/A 0 Troponin N/A 0 Total 0 I personally scribed for WILDA CISNEROS MD ([email or web address]) on 04/28/25 at 20:40. Electronically submitted by Jacinto Tirado ([email or web address]). WILDA CISNEROS MD Apr 28, 2025 20:40
[2025-04-28] MEDS: cefTRIAXone SOD 1,000 MG VL IM ONE (20:46)
[2025-04-28] MEDS: LIDOCAINE 1% HCL (LOCAL ANESTH.) INJ 20ML MDV IJ ONE (20:46)
[2025-04-28 21:03] VITALS: BP 150/74; PULSE 88; RESP 16; TEMP 97.7; O2SAT 99
== END 2025-04-28 21:05 | disposition home or self-care (01) ==
LOC: EDBD 17:11 → EDSEX 17:11 → ER 17:11 → EDUNIT# 17:11 → ER 21:05
DX: R05.9 Cough, unspecified (principal); I10 Essential (primary) hypertension; J45.909 Unspecified asthma, uncomplicated; K21.9 Gastro-esophageal reflux disease without esophagitis; F10.90 Alcohol use, unspecified, uncomplicated; Z79.899 Other long term (current) drug therapy; Z98.890 Other specified postprocedural states; Z90.49 Acquired absence of other specified parts of digestive tract; Z88.7 Allergy status to serum and vaccine; Z87.01 Personal history of pneumonia (recurrent); Z80.9 Family history of malignant neoplasm, unspecified; Z79.1 Long term (current) use of non-steroidal anti-inflammatories (NSAID); Z83.3 Family history of diabetes mellitus; Y90.9 Presence of alcohol in blood, level not specified
CPT/HCPCS: 71046; 94640; 96372; 99283; J0696; J2003